=== PATIENT | female | born 1970 | race Caucasian/White ===

== ENCOUNTER 2022-10-18 21:30 | Emergency (ER) | payer BC, OTHER ==
[2022-10-18 21:47] VITALS: BP 123/78; PULSE 83; RESP 18; TEMP 98; BMI 24.0
== END 2022-10-18 22:01 | disposition home or self-care (01) ==
LOC: FER 21:30
DX: L21.9 Seborrheic dermatitis, unspecified (principal)
CPT/HCPCS: 99282-25